=== PATIENT | female | born 1985 | race Caucasian/White ===

== ENCOUNTER 2016-12-07 05:26 | Inpatient (IN) | payer OTHER ==
[2016-12-07] VITALS (20 sets, daily range): BP systolic 92–140; BP diastolic 55–81
[~2016-12-07] VITALS: Ht 162.6 cm; Wt 60.3 kg
[~2016-12-07 05:26] MED LIST: MOTRIN800 MG PO; PERCOCET 5/31 TABLET PO; PHENERGAN25 MG PR; PRENATAL TABLE1 EAC3 PO
[2016-12-07] MEDS ORDERED: ZOLOFT25 MG PO (06:20)
[2016-12-07 06:29] LABS: EOSINOPHIL (%) 0.3 % (0-5); HEMATOCRIT 29.5 % (36.0-46.0); IMMATURE GRANULOCYTE (%) 0.3 % (0.0-0.7); IMMATURE GRANULOCYTE COUNT 0.1 K/uL; LYMPHOCYTE COUNT 2.1 K/uL (1.0-2.8); MCH 26.5 PG (29.0-34.0); MCHC 32.9 G/DL (30.0-36.0); MCV 80.6 FL (83-99); MEAN PLAT.VOLUME 10.1 uM^3 (9.5-12.4); MONOCYTE (%) 3.9 % (3-12); MONOCYTE COUNT 0.6 K/uL (0-0.8); NEUTROPHIL (%) 81.2 % (45-76); PLATELET COUNT 224 K/uL (156-360); RBC DIS.WIDTH-CV 12.8 % (11.8-14.6); RBC DIS.WIDTH-SD 37.3 % (39-53); RED BLOOD COUNT 3.66 M/uL (3.80-5.20); WHITE BLOOD COUNT 14.8 K/uL (4.1-10.2)
[2016-12-07] MEDS ORDERED: IBUPROFEN800 MG PO (09:16)
[2016-12-08 07:11] VITALS: BP 103/66
== END 2016-12-08 13:49 | disposition home or self-care (01) | DRG 775 ==
LOC: LDRP-OP 05:26 → 2WEST 05:27 → LDRP-OP 01-15 13:27
PROVIDERS: Advanced Practice Midwife
DX: O99.02 Anemia complicating childbirth (principal); D62 Acute posthemorrhagic anemia; F41.9 Anxiety disorder, unspecified; O99.344 Other mental disorders complicating childbirth; Z3A.38 38 weeks gestation of pregnancy; Z37.0 Single live birth
CPT/HCPCS: 85025; C1755; J3010

== ENCOUNTER 2017-11-28 01:55 | Emergency (ER) | payer SELFPAY ==
[~2017-11-28] VITALS: Ht 162.6 cm; Wt 52.7 kg
[~2017-11-28 01:55] MED LIST changes: +IBUPROFEN800 MG PO; +ZOLOFT25 MG PO
[2017-11-28 02:28] LABS: HEMATOCRIT 41.9 % (36.0-46.0); HEMOGLOBIN 14.2 G/DL (11.9-15.5); MCH 29.5 PG (29.0-34.0); MCHC 33.9 G/DL (30.0-36.0); MCV 86.9 FL (83-99); PLATELET COUNT 210 K/uL (156-360); RBC DIS.WIDTH-SD 38.5 % (39-53); RED BLOOD COUNT 4.82 M/uL (3.80-5.20); WHITE BLOOD COUNT 12.5 K/uL (4.1-10.2)
[2017-11-28 02:37] LABS: ALBUMIN 5.2 g/dL (3.2-4.8); CHLORIDE 107 mEq/L (99-109); POTASSIUM 3.8 mEq/L (3.7-5.4); SODIUM 141 mEq/L (136-147)
[2017-11-28 02:39] LABS: GLUCOSE 122 mg/dL (70-99)
[2017-11-28 02:40] LABS: TOTAL PROTEIN 7.7 g/dL (6.4-8.3)
[2017-11-28 02:41] LABS: TOTAL BILIRUBIN 0.8 mg/dL (0.0-1.0)
[2017-11-28 02:43] LABS: ALKALINE PHOSPHATASE 45 IU/L (3-129); CREATININE 0.8 mg/dL (0.6-1.3); GFR ESTIMATE (CALCULATED) > 59 mL/min/
[2017-11-28 02:44] LABS: UREA NITROGEN (BUN) 26 mg/dL (9-23)
[2017-11-28 02:45] LABS: AST (GOT) 17 IU/L (2-34)
[2017-11-28 02:46] LABS: ALT (GPT) 13 IU/L (3-49)
[2017-11-28 02:52] LABS: QUANTITATIVE HCG < 4.0 MIU/ML
[2017-11-28 03:24] LABS: APPEARANCE CLEAR ((CLEAR)); BILIRUBIN NEGATIVE; BLOOD SMALL; COLOR YELLOW ((YELLOW)); GLUCOSE (STRIP) NEGATIVE; KETONES 20; LEUKOCYTES NEGATIVE; NITRITE NEGATIVE; PROTEIN (STRIP) NEGATIVE; SPECIFIC GRAVITY 1.023 (1.000-1.030); UROBILINOGEN 0.2 MG/DL (0.2-1.0)
[2017-11-28 03:28] LABS: BACTERIA NONE SEEN /HPF; EPITHELIAL CELLS RARE /HPF; MUCUS TRACE /LPF; RED BLOOD CELLS 0-5 /HPF (0-5); UCUL ADDED? NO; WHITE BLOOD CELLS 0-5 /HPF (0-5)
[2017-11-28 05:19] LABS: LIPASE 28 U/L (1.0-51.0)
[2017-11-28] MEDS ORDERED: BENTYL20 MG PO (05:56)
[2017-11-28] MEDS ORDERED: TYLENOL EXTRA500 MG PO (05:56)
[2017-11-28] MEDS ORDERED: PRILOSEC OTC20 MG PO (05:56)
[2017-11-28 06:49] VITALS: BP 92/62
== END 2017-11-28 06:51 | disposition home or self-care (01) ==
LOC: EME 01:55
DX: R10.13 Epigastric pain (principal); R10.31 Right lower quadrant pain
CPT/HCPCS: 74177; 80053; 81003; 83690; 84702; 84703; 85027; 99281; 99285; J1885; J2405